=== PATIENT | female | born 1985 | race Hispanic/Latino ===

== ENCOUNTER 2018-04-10 07:23 | Day surgery (SDC) | payer BC ==
[2018-04-06 17:38] LABS: Absolute Monocytes 0.4 K/uL (0.1-1.3); Absolute Neutrophil 4.4 K/uL (1.8-8.0); Basophils % 0.4 % (0-1.3); Eosinophils % 1.9 % (0-4.4); Hematocrit 39.5 % (36.0-45.0); Lymphocytes % 37.1 % (15.3-44.8); MCH 30.6 pg (27.0-35.0); MCV 90.1 fL (80-100); MPV 10.6 fL (7.6-11.3); Monocytes % 4.8 % (3.3-12.3); RBC Red Blood Cell Count 4.38 M/uL (3.86-4.86)
[2018-04-06 17:47] LABS: BUN Blood Urea Nitrogen 9 mg/dL (7-18); Bicarbonate 27 mmol/L (21-32); Glucose Level 93 mg/dL (74-106); Potassium 3.5 mmol/L (3.5-5.1); Sodium Level 140 mmol/L (136-145)
[2018-04-06 17:49] LABS: ALT/SGPT 22 U/L (12-78); AST/SGOT 20 U/L (15-37); Alkaline Phosphatase 59 U/L (45-117); Amylase Level 56 U/L (25-115); Bilirubin Direct < 0.1 mg/dL (0-0.2); Bilirubin Total 0.4 mg/dL (0.2-1.0); Lipase 139 U/L (73-393); Protein, Total 7.5 g/dL (6.4-8.2)
[2018-04-10] MEDS ORDERED: Ringers Lactate 1,000 ML IV ONE (08:08)
[2018-04-10] MEDS ORDERED: CEFOXITIN/SWI 1gm 1 GM/10 ML SYR ONE (08:09)
[2018-04-10] MEDS ORDERED: MIDAZOLAM HCL 2 MG/2 ML INJ ONE (08:53)
[2018-04-10] MEDS ORDERED: PROPOFOL 200 MG/20 ML VIAL IV ONE (08:53)
[2018-04-10] MEDS ORDERED: GLYCOPYRROLATE 0.2 MG/ML SYR ONE (08:54)
[2018-04-10] MEDS ORDERED: FENTANYL CITR 250 MCG/5 ML ONE (08:54)
[2018-04-10] MEDS ORDERED: LIDOCAINE 2% MPF 5 ML VIAL ONE (08:54)
[2018-04-10] MEDS ORDERED: ROCURONIUM 50 MG/5 ML VIAL IV ONE (08:55)
--- NOTE | 2018-04-10 09:35 | P.BOP ---
Preoperative diagnosis: acute cholecystitis, symptomatic cholelithiasis Postoperative diagnosis: same, incarcerated umbilical hernia Primary procedure: 1. Laparoscopic cholecystectomy Secondary procedure: 2. 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
[2018-04-10] MEDS: MEPERIDINE HCL 50 MG/ML AMP ONE ×4 (09:55→10:11)
[2018-04-10 10:49] VITALS: TEMP 97.1; O2SAT 98
[2018-04-10] MEDS ORDERED: CODEINE 30MG/APAP 300MG TAB ONE (11:23)
[2018-04-10 11:34] VITALS: BP 120/77
--- NOTE | 2018-04-10 19:16 | OP ---
Date of Procedure: 04/10/2018 Surgeon: Alex Bhakta MD Special Agent [employer]: María Rosado. Diagnoses: Acute cholecystitis, symptomatic cholelithiasis. Postoperative Diagnoses: Acute cholecystitis, symptomatic cholelithiasis, incarcerated umbilical her amairani. Procedures: 1.Laparoscopic cholecystectomy. 2.Open repair of incarcerated umbilical hernia. Specimen: Gallbladder and hernia sac. Findings: The patient has acute cholecystitis, distended gallbladder with wall thickening, and also patient has incarcerated omentum on the umbilical hernia. Anesthesia: General plus local. Indications: This is the case of a 32-year-old patient with the above diagnoses. Fully explained th e benefits, alternatives, and risks of laparoscopic, possible open cholecystectomy, which include, bu t are not limited to infection, bleeding, damage to adjacent structures anesthesia complication, chol edocholithiasis, bile leak, pancreatitis, [place], and even . she also understood this might not rel ieve any symptoms. She might need more than one surgical intervention. She understood. Signed a co nsent. Description Of Procedure: The patient was brought to the operating room, placed in supine position. Anesthesia was done without complication. Abdominal area was prepped and draped in a sterile fashio n. Marcaine 0.5% injected for local anesthetic, followed by sharp incision of the skin in the infrau mbilical region. Incision was carried down to fascia. We noticed the patient to have an incarcerate d umbilical hernia. The umbilical hernia was removed from umbilical skin open. noticed incarcerated omentum. Some of that have to be removed since it is incarcerated and adhesed to the hernia sac and then rest of the omentum was retracted back into the abdominal cavity after fully inspected making s ure there was no bleeding. The hernia sac was removed. The fascial edges were cleaned, extended to accommodate a Gaurang trocar. Vicryl #1 placed inside the fascia. Gaurang trocar was carefully introd uced. No bleeding was obtained. I placed 3 more trocars, 5 mm each one of them, in the right upper quadrant under direct visualization 5 mm each one of them. After that, I proceeded to put a grasper in the fundus of the gallbladder, another grasper in the infundibulum. Retracted the gallbladder in the inferolateral fashion exposing triangle of Calot obtaining critical view of safety. The cystic d uct and cystic artery were clearly isolated free circumferentially and a connection between those and the gallbladder was clearly identified. I proceeded to ligate those by using at least 3 clips proxi mal, 1 clip distal, ligation in middle. Same was done with the cystic artery. No bile leak. No ble eding. The gallbladder was removed from liver using Bovie cauterizer and removed from abdominal cavi ty using an EndoCatch through the umbilical incision. The area was inspected once again. No bile le ak. No bleeding. At that moment, I proceeded to remove the trocars under direct vision. Deflated n o barium closer fashion 1 Vicryl. Irrigated subcu tissue, closed that with 3-0 chromic and the skin in a subcuticular fashion with 3-0 chromic. The patient tolerated the procedure well. The patient w as sent to recovery in stable condition. Sponge, count, and instrument counts were correct. Diagnoses: Acute cholecystitis, incarcerated umbilical hernia. Procedures: Laparoscopic cholecystectomy with umbilical hernia repair, incarcerated. Disposition: Home. Activity: As tolerated. No heavy lifting. Followup: Follow up in my office in 1 week. Call for appointment on [phone]. Keep area dry for 48 hours, then may shower. Keep Steri-Strips intact. OZZY/BRADY Voice ID: [id number] Report ID: [id number]
== END 2018-04-10 11:25 | disposition home or self-care (01) ==
LOC: OR 07:23
PROVIDERS: ATTEND Surgery
PROC: 0WQF0ZZ Repair Abdominal Wall, Open Approach (ICD-10-PCS; 2018-04-10)
PROC: 0FT44ZZ Resection of Gallbladder, Percutaneous Endoscopic Approach (ICD-10-PCS; principal; 2018-04-10 09:15)
DX: K80.12 Calculus of gallbladder with acute and chronic cholecystitis without obstruction (principal); K42.0 Umbilical hernia with obstruction, without gangrene; Z88.2 Allergy status to sulfonamides
CPT/HCPCS: 36415; 80048; 80076; 81025; 82150; 83690; 85025; 88302; 88304; J2175; J2250